=== PATIENT | female | born 1990 | race Caucasian/White ===

== ENCOUNTER 2020-07-20 06:00 | Day surgery (SDC) | payer OTHER ==
[2020-07-20] MEDS ORDERED: RECTICARE30 GM TOP (08:20)
[2020-07-20] MEDS ORDERED: PERCOCET 5-3251 EACH PO (08:20)
== END 2020-07-20 12:25 | disposition home or self-care (01) ==
LOC: CIR.AMB 06:00
PROVIDERS: ATTEND Surgery
DX: K60.1 Chronic anal fissure (principal); Z20.828 Contact with and (suspected) exposure to other viral communicable diseases

== ENCOUNTER 2022-03-10 21:44 | Emergency (ER) | payer OTHER ==
[~2022-03-10] VITALS: Ht 154.9 cm; Wt 54.4 kg
[~2022-03-10 21:44] MED LIST: PERCOCET 5-3251 EACH PO; RECTICARE30 GM TOP
== END 2022-03-11 05:38 ==
LOC: ER 21:44
DX: N93.9 Abnormal uterine and vaginal bleeding, unspecified (principal); R93.89 Abnormal findings on diagnostic imaging of other specified body structures

== ENCOUNTER 2022-03-29 21:31 | Emergency (ER) | payer OTHER ==
[~2022-03-29] VITALS: Ht 154.9 cm; Wt 54.4 kg
[2022-03-30] MEDS ORDERED: ZOFRAN8 MG PO (05:23)
[2022-03-30] MEDS ORDERED: INTESTINEX680 M1 PO (05:23)
[2022-03-30] MEDS ORDERED: PEPCID40 MG PO (05:23)
== END 2022-03-30 05:57 ==
LOC: ER 21:31
DX: K52.9 Noninfective gastroenteritis and colitis, unspecified (principal); Z20.822 Contact with and (suspected) exposure to COVID-19

== ENCOUNTER 2022-04-12 10:18 | Day surgery (SDC) | payer OTHER ==
[~2022-04-12] VITALS: Ht 154.9 cm; Wt 54.4 kg
[~2022-04-12 10:18] MED LIST changes: +INTESTINEX680 M1 PO; +PEPCID40 MG PO; +ZOFRAN8 MG PO
[2022-04-12] MEDS ORDERED: FAMOTIDINE40 MG (11:55)
== END 2022-04-12 19:49 | disposition home or self-care (01) ==
LOC: SEC-K 10:18 → ER 10:18 → CIR.AMB 10:18 → EDSTATUS 17:00 → O/R 19:49 → SEC-K 19:49 → CIR.AMB 19:49
PROVIDERS: ATTEND Emergency Medicine
DX: O03.4 Incomplete spontaneous abortion without complication (principal); Z20.822 Contact with and (suspected) exposure to COVID-19